=== PATIENT | male | born 1965 | race Caucasian/White ===

== ENCOUNTER → 2023-04-02 06:30 | Day surgery (SDC) | payer OTHER, SELFPAY | LOC: GI 06:30 | PROVIDERS: ATTENDING PHYSICIAN Specialist; FAMILY PHYSICIAN Family Medicine | DX: K57.30 Diverticulosis of large intestine without perforation or abscess without bleeding (principal); K31.7 Polyp of stomach and duodenum; K31.811 Angiodysplasia of stomach and duodenum with bleeding | CPT/HCPCS: 45378; 43255 ==

== ENCOUNTER 2023-12-24 13:07 | Outpatient (RCR) | payer OTHER, SELFPAY ==
[2023-12-24 08:52] LABS: % Basophils 0.8 % (0-2); % Eosinophils 2.6 % (0-6); % Immature Granulocytes 0.3 % (0-0.5); % Monocytes 9.2 % (1.7-9.3); % Neutrophils 64.1 % (42.2-75.2); Absolute Eosinophils 0.1 10^3/uL (0-0.7); Absolute Lymphocytes 0.9 10^3/uL (1.2-3.4); Absolute Monocytes 0.4 10^3/uL (0.1-0.6); Absolute Neutrophils 2.4 10^3/uL (1.4-6.5); Hematocrit 41.6 % (39.0-52.0); Hemoglobin 14.6 g/dL (13.0-18.0); Mean Corp Hgb Conc. 35.1 g/dL (33.0-37.0); Mean Corpuscular Hgb 31.1 pg (27.0-31.0); Mean Corpuscular Volume 88.5 fL (80.0-94.0); Mean Platelet Volume 9.6 fL (7.4-10.4); Platelet Count 226 10^3/uL (130-400); White Blood Cell Count 3.8 10^3/uL (4.8-10.8)
[2023-12-24 09:55] LABS: Vitamin D, 25-OH*** 35.1 ng/mL (30-80)
== END 2024-01-17 23:59 | disposition home or self-care (01) ==
LOC: OID 13:07
PROVIDERS: ATTENDING PHYSICIAN Internal Medicine Hematology & Oncology
DX: C49.A3 Gastrointestinal stromal tumor of small intestine (principal)
CPT/HCPCS: 82306; 85025

== ENCOUNTER 2024-04-21 12:46 | Observation (INO) | payer OTHER, SELFPAY ==
[2024-04-21] VITALS (18 sets, daily range): BP systolic 100–123; BP diastolic 43–71; BMI 25.0; BMI 23.9
[2024-04-21 08:54] LABS: % Basophils 0.6 % (0-2); % Eosinophils 0.6 % (0-6); % Immature Granulocytes 0.4 % (0-0.5); % Lymphocytes 15.2 % (20.5-51.1); % Monocytes 7.7 % (1.7-9.3); % Neutrophils 75.5 % (42.2-75.2); Absolute Lymphocytes 0.7 10^3/uL (1.2-3.4); Absolute Monocytes 0.4 10^3/uL (0.1-0.6); Absolute Neutrophils 3.5 10^3/uL (1.4-6.5); Hematocrit 30.7 % (39.0-52.0); Hemoglobin 10.4 g/dL (13.0-18.0); Mean Corp Hgb Conc. 33.9 g/dL (33.0-37.0); Mean Corpuscular Hgb 31.2 pg (27.0-31.0); Mean Corpuscular Volume 92.2 fL (80.0-94.0); Nucleated Red Blood Cells % 0 % (-); Platelet Count 203 10^3/uL (130-400); Red Blood Cell Count 3.33 10^6/uL (4.70-6.10); Red Cell Dist. Width 12.4 % (11.5-14.5); White Blood Cell Count 4.7 10^3/uL (4.8-10.8)
[2024-04-21] MEDS: NSS 1000 IV ×2 (09:04→19:27)
[2024-04-21] MEDS: PROTONIX IV 80 MG IV (09:05)
--- NOTE | 2024-04-21 09:05 | ED.GENMED ---
History of Present Illness
<Ramiro Pardo Jr., PA-C - Last Filed: 04/21/24 11:03>
General
Chief Complaint: Rectal Bleeding
Source: patient
Exam Limitations: none
Time Seen by Provider: 04/21/24 08:33
Nursing documentation reviewed up to this point in time: agreed with
History of Present Illness
History of Present Illness:
58-year-old male past medical history of recurrent GI bleeds presenting to the emergency department with concerns of bright red blood with bowel movement as well as dark stool since yesterday. Denies any significant abdominal pain no chest pain or
shortness of breath. Is feeling somewhat weak and tired.
Past History
<Ramiro Pardo Jr., PA-C - Last Filed: 04/21/24 11:03>
Past History
ED Past Medical History: Hypercholesterolemia
ED Past Surgical History: Bowel resection (Stromal tumor removal)
Social History
Tobacco: Non-smoker
Alcohol: None
Personal:
Living: with family
Employment: Employed
Review of Systems
<Ramiro Pardo Jr., PA-C - Last Filed: 04/21/24 11:03>
Review of Systems
Allergies reviewed?: Yes
All Other Systems: ROS reviewed and negative except as documented in HPI and ROS
Phy Exam
<DEEPIKA Wilson Jr. Last Filed: 04/21/24 11:03>
Physical Exam
Physical Exam:
GENERAL: Alert , in no apparent distress
EYE: pupils equal and reactive
NECK: Supple, no significant adenopathy.
ENT: o/p clr, mmm.
CARDIAC: Regular rate and rhythm .
LUNGS: Clear breath sounds bilaterally, no acute respiratory distress, no wheezes/rales/rhonchi
ABDOMEN: Soft, without focal tenderness, no r/g, no cvat rectal examination revealing dark brown to black stool
NEUROLOGICAL: Alert and oriented, no focal neuro deficits
SKIN: Warm and dry, skin intact.
MUSCULOSKELETAL: No edema, well perfused.
PSYCH: Normal and appropriate interaction.
Course
<Ramiro Pardo Jr., PA-C - Last Filed: 04/21/24 11:03>
Orders/Labs/Results
Orders:
Orders
04/21/24 08:47
CMP [Comprehensive Metabolic Panel] Urgent
Complete Blood Count/With Diff Urgent
04/21/24 08:52
0.9% Sodium Chloride 1000 ml [Nss] 1,000 ml IV BOLUS
Pantoprazole [Protonix IV] 80 mg IV NOW STA
04/21/24 09:00
Type+Screen Urgent
04/21/24 09:23
* Blood Bank Products Urgent
Blood Bank Products: *Packed RBC Leuko(PRBC's)
Quantity: 1
Transfuse Today: Yes
Reason: Bleeding
Abnormal Lab Results
04/21/24 04/21/24
08:47 09:00
WBC 4.7 L 10^3/uL
(4.8-10.8)
RBC 3.33 L 10^6/uL
(4.70-6.10)
Hgb 10.4 L g/dL
(13.0-18.0)
Hct 30.7 L %
(39.0-52.0)
MCH 31.2 H pg
(27.0-31.0)
Absolute Lymphs (auto) 0.7 L 10^3/uL
(1.2-3.4)
Neutrophils % 75.5 H %
(42.2-75.2)
Lymphocytes % 15.2 L %
(20.5-51.1)
BUN 30 H mg/dl
(9-20)
Glucose 122 H mg/dl
(70-99)
Total Protein 5.9 L g/dl
(6.3-8.2)
Crossmatch IS Only See Detail
04/21/24 08:47
04/21/24 08:47
Vital Signs
Initial and Last Documented VS:
Initial Vital Signs
Temp Pulse Resp BP Pulse Ox
98.1 F 81 18 115/71 100
04/21/24 07:54 04/21/24 07:54 04/21/24 07:54 04/21/24 07:54 04/21/24 07:54
Last Documented Vital Signs
Temp Pulse Resp BP Pulse Ox
98.1 F 81 18 116/63 99
04/21/24 07:54 04/21/24 07:54 04/21/24 07:54 04/21/24 10:00 04/21/24 10:00
<Mitchel Joiner, DO - Last Filed: 04/21/24 09:28>
Orders/Labs/Results
Orders:
Orders
04/21/24 08:47
CMP [Comprehensive Metabolic Panel] Urgent
Complete Blood Count/With Diff Urgent
04/21/24 08:52
0.9% Sodium Chloride 1000 ml [Nss] 1,000 ml IV BOLUS
Pantoprazole [Protonix IV] 80 mg IV NOW STA
04/21/24 09:00
Type+Screen Urgent
04/21/24 09:23
* Blood Bank Products Urgent
Blood Bank Products: *Packed RBC Leuko(PRBC's)
Quantity: 1
Transfuse Today: Yes
Reason: Bleeding
Abnormal Lab Results
24 04/21/24
08:47 09:00
WBC 4.7 L 10^3/uL
(4.8-10.8)
RBC 3.33 L 10^6/uL
(4.70-6.10)
Hgb 10.4 L g/dL
(13.0-18.0)
Hct 30.7 L %
(39.0-52.0)
MCH 31.2 H pg
(27.0-31.0)
Absolute Lymphs (auto) 0.7 L 10^3/uL
(1.2-3.4)
Neutrophils % 75.5 H %
(42.2-75.2)
Lymphocytes % 15.2 L %
(20.5-51.1)
BUN 30 H mg/dl
(9-20)
Glucose 122 H mg/dl
(70-99)
Total Protein 5.9 L g/dl
(6.3-8.2)
Crossmatch IS Only See Detail
04/21/24 08:47
04/21/24 08:47
Vital Signs
Initial and Last Documented VS:
Initial Vital Signs
Temp Pulse Resp BP Pulse Ox
98.1 F 81 18 115/71 100
04/21/24 07:54 04/21/24 07:54 04/21/24 07:54 04/21/24 07:54 04/21/24 07:54
Last Documented Vital Signs
Temp Pulse Resp BP Pulse Ox
98.1 F 81 18 116/63 99
04/21/24 07:54 04/21/24 07:54 04/21/24 07:54 04/21/24 10:00 04/21/24 10:00
<Ramiro Pardo Jr., PA-C - Last Filed: 04/21/24 11:03>
MDM/Problems Addressed
MDM/Problems Addressed:
58-year-old male presenting to the emergency department with history of GI bleeds. Patient describing red blood and black stool since yesterday. Here confirmed on rectal examination no abdominal pain. GI consulted hemoglobin 10.4 baseline seems
to be 14 from a few months ago. Vital signs normal here. Unit of blood ordered due to the significant drop in hemoglobin also given Protonix GI aware patient will be admitted for further monitoring and treatment.
<Ramiro Pardo Jr., PA-C - Last Filed: 04/21/24 11:03>
*Critical Care Note
Total Time (30-74mins, 75-104mins- exclusive of procedures): Not Applicable
ED Attending Note
<Ramiro Pardo Jr., PA-C - Last Filed: 04/21/24 11:03>
-
Portions of this chart may have been created with voice recognition software.� Occasional wrong word or��sound alike� substitutions may have occurred due to the inherent limitations of voice recognition software.
<Mitchel Joiner DO - Last Filed: 04/21/24 09:28>
ED Attending Note
Patient seen and examined by attending physician: Yes
I performed the substantive portion of visit, reviewed & personally made and approve the management plan that is documented in note by myself or ETELVINA.: Yes
ED Attending Note:
I have seen and evaluated the patient with a [id number] encounter. I have spoken to the advance practicer provider and involved in the medical history, the physical exam, medical decision making.
Evaluation and management service: agree unless noted differently below.
Results interpretation: agree unless noted differently below.
Focused HPI: 58-year-old male presenting with rectal bleeding. 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 Since then, he has had 9 episodes of bleeding. He was told that there is ulceration by the anastomosis. Patient states he has required
blood transfusions for this in the past
Physical exam: No abdominal tenderness. Appears comfortable but also appears pale
Medical Decision Making: Patient is found to be anemic given the concern for active bleeding, will give 1 unit of packed red blood cells and have GI evaluate.
Discharge Plan
Departure
Patient Disposition: Admit
Date of Disposition: 04/21/24
Time of Disposition: 11:03
Admit to: Med/Surg
Admit to doctor: Samir
Presentation/result/management discussed w/ accepting MD/DO: Hospitalist
Patient with high blood pressure during this ER visit?: No
Condition: Good
Covid-19: Not Applicable
Discharge Problem:
GI bleeding
Prescriptions:
No Action
ferrous sulfate [FeroSul] 325 MG tablet
325 mg PO DAILY
cyanocobalamin (vitamin B-12) 1,000 mcg Tablet
1,000 mcg PO DAILY
cholecalciferol (vitamin D3) [Vitamin D3] 25 mcg (1,000 unit) Tablet
25 mcg PO DAILY
Referrals:
Anton Reese MD [Family Provider] -
Interventions
Interventions:
*Risk Screen - Suicide Last Done: 04/21/24 07:54
*General Assessment Last Done: 04/21/24 07:54
*Neglect/Abuse Screening Last Done: 04/21/24 07:54
ED- Fall Risk Assessment Last Done: 04/21/24 08:38
*ED COVID-19 Vaccine History Last Done: 04/21/24 08:38
HJ-Xsizvw-Mnpsqieyfh Assessment Last Done: 04/21/24 08:38
ED- Cardiac Assessment Last Done: 04/21/24 08:38
ED- Pulmonary Assessment Last Done: 04/21/24 08:38
Discharge Date and Time
Print Language: GERMAN
[2024-04-21 09:23] LABS: ALT (SGPT) 18 U/L (0-50); AST (SGOT) 23 U/L (17-59); Albumin 3.8 g/dl (3.5-5.0); Alkaline Phosphatase 58 U/L (38-126); Blood Urea Nitrogen 30 mg/dl (9-20); Calcium 8.5 mg/dl (8.4-10.2); Carbon Dioxide 29 mmol/L (22-30); Chloride 103 mmol/L (98-107); Estimated Creatinine Clearance 106 ml/min; Glucose 122 mg/dl (70-99); Potassium 4.3 mmol/L (3.5-5.1); Sodium 138 mmol/L (135-145); Total Bilirubin 0.3 mg/dl (0.2-1.3); Total Protein 5.9 g/dl (6.3-8.2); eGFR > 60.00
--- NOTE | 2024-04-21 10:42 | CON.GI ---
Addendum entered and electronically signed by Ray Reynoso MD 04/21/24 14:15:
Patient seen and examined, agree with resident note. Patient presents with recurrent GI bleeding. He had multiple episodes over the past several years, with extensive workup including multiple endoscopies, colonoscopies, double-balloon
enteroscopy's and PillCam's. No absolute source has been found, though likely related to his anastomosis from previous chest surgery. He has had other small angiectasia that had been treated with APC in the past. Usually before he has any
symptoms he has abdominal pain and bloating and then has episodes of bleeding. He definitely notices this when he has foods that are higher in bulk. Currently he is feeling okay, but did have some lightheadedness earlier today, initially with red
blood then with black stool. He denies any significant NSAID. On exam his vital signs are stable and abdomen is benign. Etiology of GI bleeding is likely from anastomosis, given previous workup in the past and findings. Interestingly that his
symptoms started after having foods that have bulk to them and some obstructive symptoms also add to this. Other etiologies are not completely excluded, though underlying peptic ulcer disease or other angiectasia seem much less likely. At this
point given elevated BUN and melena we will plan EGD. Will continue supportive care. We discussed a very low residue diet going forward. If signs of brisk active bleeding then CT angiogram.
Original Note:
Consultation
-
Performing Provider: Siobhan Lacy
Reason for Consultation: BRBPR
Medical History
Chief Complaint / HPI
Chief Complaint: Bright red blood in stools for last 2 days
History of Present Illness:
Patient is a 58-year-old male with past medical history of GIST tumor removed in 2002. He has had recurrent obscure bleeding since 2020, he had an extensive workup done including multiple endoscopies, colonoscopies, video capsule studies which
showed superficial ulceration at the site of anastomosis where the small bowel resection was done. He was in his usual state of health when he started to have blood in stools starting yesterday. The stool is black in color and there is fresh blood
mixed in the water but there are no blood clots. He reports 6 episodes and the last one was about 15 minutes ago. He has been starting to feel a little bit lightheaded and dizzy and his hemoglobin has dropped from 14.5-10.4.
He denies any pain medications or blood thinners he recently traveled. He recently traveled to [place] 2 weeks ago but he denies any fever, chills, joint pains, diarrhea, nausea, vomiting or any other issues. He denies eating any bad food
or any sick contacts. The patient does not smoke or drink alcohol.
Past Medical History
Past Medical History: Other (Gastrointestinal stromal tumor diagnosed in 2002)
Past Surgical History: Other (Lab removal of tumor and small bowel in September 2002)
Social History
Tobacco: Non-Smoker
Alcohol: None
Living: With Family
Family History
Family History: Other (Father had history of colon polyp )
Allergies / Home Medications
Allergy/AdvReac Type Severity Reaction Status Date / Time
diphenhydramine AdvReac racing Verified 04/21/24 07:53
[From Benadryl] heart
�Medication �Instructions �Recorded
ferrous sulfate 325 mg (65 mg 325 mg PO DAILY Supplement 05/08/21
iron) tablet (FeroSul)
cholecalciferol (vitamin D3) 25 25 mcg PO DAILY Supplement 04/21/24
mcg (1,000 unit) tablet (Vitamin
D3)
cyanocobalamin (vitamin B-12) 1,000 mcg PO DAILY Supplement 04/21/24
1,000 mcg tablet
Review of Systems
-
All other systems: A 12 pt ROS was Negative except as stated above in HPI
Vital Signs
Temp Pulse Resp BP Pulse Ox
98.1 F 81 18 116/63 99
04/21/24 07:54 04/21/24 07:54 04/21/24 07:54 04/21/24 10:00 04/21/24 10:00
Physical Exam
Exam
General: Well Developed, No Apparent Distress and Other (Frustrated and visibly upset)
Respiratory: Clear (No rhonchi rales or wheezes)
Cardiac: S1/S2 and Regular Rhythm
GI: Soft, Non Tender and Normal Bowel Sounds
Skin: Warm and Dry
Neuro: Awake, Oriented and No Motor Deficits
Results
WBC 4.7 10^3/uL (4.8-10.8) L 04/21/24 08:47
Hgb 10.4 g/dL (13.0-18.0) L 04/21/24 08:47
Hct 30.7 % (39.0-52.0) L 04/21/24 08:47
MCV 92.2 fL (80.0-94.0) 04/21/24 08:47
Plt Count 203 10^3/uL (130-400) 04/21/24 08:47
Absolute Neuts (auto) 3.5 10^3/uL (1.4-6.5) 04/21/24 08:47
Sodium 138 mmol/L (135-145) 04/21/24 08:47
Potassium 4.3 mmol/L (3.5-5.1) 04/21/24 08:47
Chloride 103 mmol/L (98-107) 04/21/24 08:47
Carbon Dioxide 29 mmol/L (22-30) 04/21/24 08:47
BUN 30 mg/dl (9-20) H 04/21/24 08:47
Creatinine 0.8 mg/dL (0.7-1.3) 04/21/24 08:47
Calcium 8.5 mg/dl (8.4-10.2) 04/21/24 08:47
Total Bilirubin 0.3 mg/dl (0.2-1.3) 04/21/24 08:47
AST 23 U/L (17-59) 04/21/24 08:47
ALT 18 U/L (0-50) 04/21/24 08:47
Alkaline Phosphatase 58 U/L (38-126) 12/04/24 08:47
Diagnostic Image Results:
07/26/21 LOWER DOUBLE BALLOON ENTEROSCOPY ([facility])- 2mm cecal benign polyp. Erosion distal ileum bx neg. Few tiny red spots within 20cm of ICV cauterized w APC. Two soft polypoid lesions in TI bx neg.�������07/03/21 UPPER DOUBLE BALLOON ENTEROSCOPY
([facility])- SB anastomosis at point maximal insertion. Superficial ulceration 12-15mm. Tattooed. Bx benign.�������11/16/20 [facility]- Ulcerated anastomosis in mid SB. Colon polyp.�������08/08/20 CT AP w IV/PO- SB anastomosis site above umbilicus and L
of midline. L renal cyst�������07/06/20 EGD- Gastric polyp. Gastric bx neg HP. SBBx mild increased IEL.�������07/06/20 COLON- Normal. Random bx mild ileitis
Prior GI Procedures:
EGD: 04/10
Impression: - Normal esophagus.
- A few gastric polyps.
- Two non-bleeding angioectasias in the duodenum.
Treated with argon plasma coagulation (APC).
- No specimens collected.
Colonoscopy:
04/10
Impression: - Diverticulosis in the sigmoid colon.
- The examined portion of the ileum was normal.
- No specimens collected.
Recommendation: - Duodenal ectasias cauterized today could havee been
bleeding source but did not appear highly suspicious.
Monitor for recurrent bleeding and schedule capsule
endoscopy if rebleed
Assessment / Plan
-
IMPRESSION
Patient is a 58-year-old male with past medical history of GIST tumor that was diagnosed when patient had life-threatening bleed in 2002 resulting in a bowel resection. He has had multiple episodes of bleeding since 2020, he had a break of about 17
months in 2021 where he did not bled at all and then he had some episodes later. He has undergone multiple endoscopies, colonoscopies, video capsule studies, and balloon enteroscopy. Upper double-balloon enteroscopy showed superficial ulceration
12 to 15 mm tattooed in 2021 and then the lower double-balloon enteroscopy showed 2 mm cecal benign polyp, erosion in the distal thallium and few tiny red spots within 20 cm of ICV cauterized with APC.Patient received transfusion of blood in the ER
ASSESSMENT/PLAN
Acute Bright red blood per rectum could be secondary to AVM,Talengectasia,Superficial ulceration at anastomosis site,diverticulosis
Upper GI endoscopy with or without colonoscopy to assess the source of bleeding
Continue IV fluids and PPI
Keep NPO
Trend hemoglobin levels and vitals
If patient has another bowel movement with lots of blood immediately plan CTA
Patient counselled about the possible causes and the workup
-
-
Thank you for consultation and allowing me to participate in the patient's care. Please call the site monitor GI physician during the after hours with any questions or concerns.
--- NOTE | 2024-04-21 13:17 | CM ---
Patient seen at bedside in ED with , patient son and physician. Patient stated that he lives with family in 2 story home with no DME. 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
Patient PCP is Dr. Ellis and he is currently having transfusion. CM will continue to follow for discharge planning needs.
Plan; home with no needs pending medical treatment plan
--- NOTE | 2024-04-21 13:20 | HPS.HSE ---
Family Physician
-
Family Physician: Anton Reese
Chief Complaint
-
GI bleeding
History of Present Illness
Patient is a 58-year-old male who had a history of a GIST tumor in the mid jejunum removed at [facility] approximately 21 years ago. Starting in 2019 patient has had multiple episodes of rectal bleeding. He states that he has had multiple
EGD/colonoscopy/double-balloon enteroscopy's/capsule studies all without significant findings regarding location of bleeding. Yesterday morning 04/20/2024, patient started with more bloody bowel movements. He describes them as more bright red. He
states his hemoglobin normally runs around 15 and is now down to 10.4. He has had 1 bowel movement here in the emergency department which confirms bright red blood and stool. Patient is starting to feel lightheaded and dizzy along with some mild
nausea but no vomiting. He is frustrated with lack of answers regarding why he is still bleeding and told GI that he wants a surgical evaluation to remove the bleeding area.
Medical History
Past Medical History
Past Medical History: Reports Other
Additional Past Medical History:
GIST tumor
GI bleeding--had multiple episodes of GI bleeding and has had endoscopy, colonoscopy, capsule study for evaluation in 2020 which showed ulceration at the anastomosis--he also had double-balloon enteroscopy from above and below that also found a
superficial ulceration at his anastomotic site with tiny red spots within 20 cm of his ileocecal valve that were cauterized. In May 2023 he had a capsule study which apparently showed a vessel with a clot but no bleeding
Past Surgical History: Reports Other
Additional Past Surgical History:
GIST tumor removal
Social History
Tobacco: Non-smoker
Alcohol: None
Drug: None
Personal:
Living: With Family
Employment: Employed
Family History
Family History: Other (Father had colon polyps)
Allergies / Home Medications
Allergies reflects when Allergies were last updated in [facility].
Home Medications with original date entered in [facility]
Allergy/Medication List:
Allergies
Allergy/AdvReac Type Severity Reaction Status Date / Time
diphenhydramine AdvReac racing Verified 04/21/24 07:53
[From Benadryl] heart
Home Medications
ferrous sulfate 325 mg (65 mg iron) tablet (FeroSul) 325 mg PO DAILY Supplement 05/08/21
cholecalciferol (vitamin D3) 25 mcg (1,000 unit) tablet (Vitamin D3) 25 mcg PO DAILY Supplement 04/21/24
cyanocobalamin (vitamin B-12) 1,000 mcg tablet 1,000 mcg PO DAILY Supplement 04/21/24
Review of Systems
-
History Source: Patient and Family
A 12 point ROS was completed and negative except as noted: Yes
Constitutional: Denies Fever, Weight Loss or Fatigue
EENT: Reports No Symptoms
Respiratory: Reports No Symptoms
Cardiac: Reports No Symptoms
Abdomen/GI: Reports Nausea and Bloody Stools; Denies Vomiting
: Reports No Symptoms
Musculoskeletal: Reports No Symptoms
Skin: Reports No Symptoms
Neurological: Reports Dizzy (Lightheaded)
Endocrine: Reports No Symptoms
Hematologic/Lymphatic: Reports Bleeding
Psych: Reports No Symptoms
Physical Exam
Vital Signs
Vital Signs
Temp Pulse Resp BP Pulse Ox
98.2 F 68 18 110/65 97
04/21/24 12:18 04/21/24 12:18 04/21/24 12:18 04/21/24 12:18 04/21/24 12:15
Physical Exam
General: Well Developed, Well Nourished and No Apparent Distress
HEENT: NormoCephalic and Anicteric; No [place] Conjunctivae (Pale)
Respiratory: Clear; No Wheezes, Rales, Rhonchi or Crackles
Cardiac: S1/S2 and Regular Rhythm; No Bradycardia or Tachycardia
GI: Soft, Non Tender, Non Distended and Normal Bowel Sounds
Musculoskeletal: No Clubbing, No Cyanosis and No Edema
Skin: Warm and Dry
Neuro: Awake and Alert
Psych: Calm
Laboratory Results
-
04/21/24 08:47
04/21/24 08:47
Laboratory Results
Total Bilirubin 0.3 mg/dl (0.2-1.3) 04/21/24 08:47
AST 23 U/L (17-59) 04/21/24:47
ALT 18 U/L (0-50) 04/21/24 08:47
Alkaline Phosphatase 58 U/L (38-126) 04/21/24:47
Impression/Plan
-
Patient is a 58-year-old male
Acute blood loss anemia from GI bleeding--baseline hemoglobin is approximately 15, he has dropped down to 10.4--he has received 1 unit of packed red blood cells at this time--consult GI--serial H&H, transfuse as needed--n.p.o. with IV fluids--if
patient significantly bleeds would send for CT angiogram--explained that he may have diverticular bleeding, AVM bleeding, or something else which may not be amenable to surgical removal--can certainly do stool studies if he provides another sample
to rule out infection but doubt that this is of an infectious nature
DVT proph--SCDs
code status--FULL CODE
--- NOTE | 2024-04-21 17:22 | PTCARENOTE ---
Received patient from ER this afternoon. Pt oriented to room. Report called to GI lab and patient sent for endoscopy.
[2024-04-21 19:33] LABS: Hematocrit 28.1 % (39.0-52.0); Hemoglobin 9.7 g/dL (13.0-18.0)
[2024-04-22 02:03] LABS: Hematocrit 27.8 % (39.0-52.0); Hemoglobin 9.6 g/dL (13.0-18.0)
--- NOTE | 2024-04-22 02:05 | PTCARENOTE ---
Pt. has had no BM's/bleeding issues so far this shift, VSS, NSR on the monitor. Most recent hgb 9.6 @ 0142. Pt. sleeping.
[2024-04-22 02:35] VITALS: BP 108/53
[2024-04-22] MEDS: NSS 1000 IV (04:47)
--- NOTE | 2024-04-22 07:01 | W.PN.GI.CBS2 ---
Today's Communication / Plan
-
Please see assessment and plan for details.
Assessment / Plan
-
1. GI bleed: Chronic obscure, likely secondary to anastomosis given partial obstruction symptoms preceding his bleeding and extensive previous workup in the past. EGD yesterday without any signs of bleeding, with very small angiectasia in the
duodenum. His hemoglobin has remained stable overnight, no further gross bleeding. If morning hemoglobin is stable and is okay to DC from a GI standpoint on a low residue diet. If signs of brisk active bleeding then CT angiogram, we discussed in
the future to come into the ER early with signs of significant bleeding for CT angiogram.
Subjective
Subjective
Date of Service: April 22, 2024
Patient feeling well, no bowel movements overnight, no abdominal pain, nausea or vomiting.
Objective
Data Reviewed
Laboratory Data:
Laboratory Results
Total Bilirubin 0.3 mg/dl (0.2-1.3) 04/21/24 08:47
AST 23 U/L (17-59) 04/21/24 08:47
ALT 18 U/L (0-50) 04/21/24 08:47
Alkaline Phosphatase 58 U/L (38-126) 04/21/24 08:47
Vital Signs and I&O:
Vital Signs
Temp Pulse Resp BP Pulse Ox
98.2 F 72 18 108/53 98
04/22/24 02:35 04/22/24 02:35 04/22/24 02:35 04/22/24 02:35 04/22/24 02:35
I&O
04/21/24 04/22/24 04/23/24
06:59 06:59 06:59
Intake Total 1690 / 1690
Balance 1690 / 1690
Physical Exam
Physical Exam
General: NAD
Abdomen: normal bowel sounds, soft, no tenderness, no masses or bruits, no ascites
[2024-04-22 08:08] VITALS: BP 138/54
[2024-04-22 08:48] LABS: Hemoglobin 9.9 g/dL (13.0-18.0); Mean Corp Hgb Conc. 34.1 g/dL (33.0-37.0); Mean Corpuscular Hgb 31.1 pg (27.0-31.0); Mean Corpuscular Volume 91.2 fL (80.0-94.0); Mean Platelet Volume 9.9 fL (7.4-10.4); Platelet Count 190 10^3/uL (130-400); Red Blood Cell Count 3.18 10^6/uL (4.70-6.10); Red Cell Dist. Width 13.1 % (11.5-14.5); White Blood Cell Count 3.9 10^3/uL (4.8-10.8)
[2024-04-22 09:23] LABS: ALT (SGPT) 19 U/L (0-50); AST (SGOT) 23 U/L (17-59); Albumin 3.2 g/dl (3.5-5.0); Alkaline Phosphatase 52 U/L (38-126); Blood Urea Nitrogen 16 mg/dl (9-20); Calcium 8.5 mg/dl (8.4-10.2); Carbon Dioxide 28 mmol/L (22-30); Chloride 108 mmol/L (98-107); Estimated Creatinine Clearance 94 ml/min; Glucose 105 mg/dl (70-99); Potassium 3.8 mmol/L (3.5-5.1); Sodium 142 mmol/L (135-145); Total Bilirubin 0.6 mg/dl (0.2-1.3); Total Protein 5.4 g/dl (6.3-8.2); eGFR > 60.00
[2024-04-22 10:18] VITALS: BMI 23.9
[2024-04-22 11:44] VITALS: BP 108/58
--- NOTE | 2024-04-22 13:46 | W.PN.HOSP.TC ---
Today's Communication/Plan
-
d/c
Assessment / Plan
Assessment / Plan
pt is a 58 year old male
Acute blood loss anemia from GI bleeding--baseline hemoglobin is approximately 15, he has dropped down to 10.4--he has received 1 unit of packed red blood cells at this time--apprec GI, s/p EGD with angiectasias noted--serial H&H, transfuse as
needed---if patient significantly bleeds would send for CT angiogram--ok for d/c by GI
DVT proph--SCDs
code status--FULL CODE
Anticipated Discharge: Today
Subjective/Interval History
-
Date of Service: April 22, 2024
pt without c/o
Objective Data
-
Labs:
Laboratory Results
04/22/24 04/22/24
01:42 08:10
WBC 3.9 L
Hgb 9.6 L 9.9 L
Hct 27.8 L 29.0 L
Plt Count 190
Sodium 142
Potassium 3.8
Chloride 108 H
Carbon Dioxide 28
BUN 16
Creatinine 0.9
Glucose 105 H
Calcium 8.5
Total Bilirubin 0.6
AST 23
ALT 19
Alkaline Phosphatase 52
Vital Signs:
max temp for 24 hours
04/22/24
11:44
Temp 98.4 F
Vital Signs
Temp Pulse Resp BP Pulse Ox
98.4 F 66 18 108/58 98
04/22/24 11:44 04/22/24 11:44 04/22/24 11:44 04/22/24 11:44 04/22/24 11:44
I&O
04/21/24 04/22/24 04/23/24
06:59 06:59 06:59
Intake Total 1690 / 1690
Balance 1689
Review of Systems
-
All other systems: Reviewed and negative
Physical Exam
-
General: Well Developed, Well Nourished and No Apparent Distress
HEENT: Normocephalic and Atraumatic
Respiratory: Clear to Auscultation; Negative Wheezes or Rhonchi
Cardiac: Regular Rhythm and S1/S2; Negative Murmur
GI: Soft, Nontender, Nondistended and Normal Bowel Sounds
Musculoskeletal: No Clubbing, No Cyanosis and No Edema
Neuro: Awake and Alert
--- NOTE | 2024-04-22 13:58 | CM ---
Patient seen at bedside with physician. Patient changed to OBS from INP and form reviewed with patient and signed form placed on chart. Patient to call his family for transportation home. CM will continue to follow for discharge planning needs.
Plan; home with no needs.
--- NOTE | 2024-04-22 16:00 | W.DCSUMMARY ---
Discharge Summary
Discharge Data
Date of Admission: 04/21/24
Date of Discharge: 04/22/24
-
Pending Results: No
Hospital Course
Primary care physician : Anton Reese
Principal Discharge diagnosis : Acute blood loss anemia from GI bleeding
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 Starting in 2019 the patient has had multiple episodes of rectal bleeding. He stated has had
multiple EGDs/colonoscopies/double-balloon enteroscopy/capsule studies all without significant findings regarding location of bleeding. On the morning prior to admission 04/20/2024, patient developed bloody bowel movements. He described them as
bright red. He stated his hemoglobin runs around 15 and is now down to 10.4. He had 1 bowel movement in the emergency department which was bright red blood and stool. Patient started to feel lightheaded and dizzy along with some mild nausea but
no vomiting. Patient received a packed red blood cell transfusion in the emergency department and was admitted.
Problem #1: Acute blood loss anemia from GI bleeding. Patient understandably was frustrated with the fact that he has intermittent bleeding. He has had multiple GI interventions as noted above all without significant location of the bleeding. It
is felt however, that the source is likely around the anastomotic site. Diverticular bleeding, AVM bleeding as well as other etiologies including ulcers were also discussed with the patient. GI was consulted. Patient underwent endoscopy which
showed a few nonbleeding angioectasias in the duodenum. Patient had no further bleeding throughout his hospital stay. He is tolerating a low residue diet and is stable for discharge at this time. Admission hemoglobin was 10.4; he received 1 unit
of packed red blood cells and his discharge hemoglobin is 9.9.
Patient is stable for discharge home at this time. If there are any questions regarding this dictation or his hospital stay, please not hesitate to call. Our office number is [phone].
Procedure findings :
EGD Impression: - Normal esophagus.
- Normal stomach.
- A few non-bleeding angioectasias in the duodenum.
- No specimens collected.
Discharge Plan
-
Patient Disposition: Home (Routine Discharge)
Discharge Diagnosis/Procedures: Acute blood loss anemia from gastrointestinal bleeding
Diet: Low Residue
Additional Diets: Advance as tolerated
Activity: As tolerated
Driving Restrictions: As prior to admission
Bathing Restrictions: None
Referrals:
Chadwick Cisneros MD [Active] - in two to four weeks
Anton Reese MD [Family Provider] - in less than 1 week
Prescriptions:
Continued
ferrous sulfate [FeroSul] 325 MG tablet
325 mg PO DAILY
cyanocobalamin (vitamin B-12) 1,000 mcg Tablet
1,000 mcg PO DAILY
cholecalciferol (vitamin D3) [Vitamin D3] 25 mcg (1,000 unit) Tablet
25 mcg PO DAILY
Discharge Orders:
Discharge Patient (As Directed); Ordered 04/22/24
Ordered By: Carmen Segundo
Discharge Date and Time
Discharge Date/Time: 04/22/24 15:48
Print Language: BHUTANESE
== END 2024-04-22 15:48 | disposition home or self-care (01) ==
LOC: 4 EAST ACU 12:46
PROVIDERS: Physician Assistant; ADMITTING PHYSICIAN Internal Medicine; CONSULT PHYSICIAN Internal Medicine Gastroenterology; EMERGENCY PHYSICIAN Student in an Organized Health Care Education/Training Program; FAMILY PHYSICIAN Family Medicine
DX: K31.811 Angiodysplasia of stomach and duodenum with bleeding (principal); D62 Acute posthemorrhagic anemia; R53.1 Weakness; E78.00 Pure hypercholesterolemia, unspecified; R42 Dizziness and giddiness; Z87.19 Personal history of other diseases of the digestive system; Z88.8 Allergy status to other drugs, medicaments and biological substances
CPT/HCPCS: 43235; 36430; 80053; 85014; 85018; 85025; 85027; 86850; 86900; 86901; 86920; 96361; 96374; 99285; G0378; P9016

== ENCOUNTER → 2025-01-24 16:26 | Outpatient (REF) | payer OTHER, SELFPAY ==
[2025-01-24 08:53] LABS: Hematocrit 33.3 % (39.0-52.0); Hemoglobin 11.3 g/dL (13.0-18.0); Mean Corp Hgb Conc. 33.9 g/dL (33.0-37.0); Mean Corpuscular Volume 91.5 fL (80.0-94.0); Platelet Count 210 10^3/uL (130-400); Red Cell Dist. Width 13.0 % (11.5-14.5)
== END ==
LOC: OIDL 16:26
PROVIDERS: ATTENDING PHYSICIAN Nurse Practitioner Primary Care
DX: C49.A3 Gastrointestinal stromal tumor of small intestine (principal); D50.9 Iron deficiency anemia, unspecified; E53.9 Vitamin B deficiency, unspecified; E55.9 Vitamin D deficiency, unspecified
CPT/HCPCS: 82652; 85025

== ENCOUNTER → 2025-01-31 08:56 | Outpatient (REF) | payer OTHER, SELFPAY ==
[2025-01-31 08:58] LABS: Hematocrit 35.4 % (39.0-52.0); Hemoglobin 11.7 g/dL (13.0-18.0); Mean Corp Hgb Conc. 33.1 g/dL (33.0-37.0); Mean Corpuscular Volume 94.9 fL (80.0-94.0); Platelet Count 271 10^3/uL (130-400); Red Cell Dist. Width 14.3 % (11.5-14.5)
== END ==
LOC: OIDL 08:56
PROVIDERS: ATTENDING PHYSICIAN Nurse Practitioner Primary Care
DX: C49.A3 Gastrointestinal stromal tumor of small intestine (principal); D50.9 Iron deficiency anemia, unspecified; E53.9 Vitamin B deficiency, unspecified; E55.9 Vitamin D deficiency, unspecified
CPT/HCPCS: 84100; 85025